=== PATIENT | female | born 1965 | race African-American/Black ===

== ENCOUNTER 2017-01-06 16:07 | Emergency (ER) | payer MEDICAID ==
[~2017-01-06] VITALS: Ht 152.4 cm; Wt 72.6 kg
[~2017-01-06 16:07] MED LIST: NORPTMEDS CO
[2017-01-06 16:54] VITALS: BP 155/80
== END 2017-01-06 17:18 | disposition home or self-care (01) ==
LOC: ER 16:12
DX: S46.911A Strain of unspecified muscle, fascia and tendon at shoulder and upper arm level, right arm, initial encounter (principal); R51 Headache; M54.2 Cervicalgia; V43.62XA Car passenger injured in collision with other type car in traffic accident, initial encounter; Y93.89 Activity, other specified; Y92.89 Other specified places as the place of occurrence of the external cause; Y99.8 Other external cause status